=== PATIENT | male | born 1970 | race Asian ===

== ENCOUNTER 2020-12-04 10:57 | Emergency (ER) | payer MEDICAID ==
[~2020-12-04] VITALS: Ht 157.5 cm; Wt 47.7 kg
[2020-12-04 10:58] VITALS: BP 142/94
--- NOTE | 2020-12-04 11:34 | NUR ---
PT BIB SISTER VIA POV. PER PT'S SISTER "AT HOME HE WILL NOT EAT OR TAKE HIS MEDICATION, HE KEEPS REPEATING NONSENCE". PT NOT ANSWERING MOST QUESTIONS, PT WITH HX SCHIZ. SISTER DENIES SI/HI. PT CURRENTLY WILL SAY "NO" TO SI/HI QUESTONS. PT RESTING IN [place], SISTER AT BEDSIDE, AWAITING EDMD TAM ALVAREZ.
[2020-12-04 12:19] LABS: BASOPHILS % (AUTO) 0 % (0-1); EOSINOPHILS % (AUTO) 0 % (1-7); LYMPHOCYTES % (AUTO) 11 % (22-44); MEAN CORPUSCULAR HEMOGLOBIN 27.8 pg (27.5-34.5); MEAN CORPUSCULAR HGB CONC 33.7 g/dL (33.2-36.2); MEAN PLATELET VOLUME 7.3 fL (7.4-10.4); MONOCYTES % (AUTO) 7 % (2-9); NEUTROPHILS % (AUTO) 82 % (42-75); PLATELET COUNT 230 x10^3/uL (130-400); RED BLOOD COUNT 4.93 x10^6/uL (4.38-5.82); RED CELL DISTRIBUTION WIDTH 13.5 % (9.4-14.8)
[2020-12-04 12:21] LABS: ALANINE AMINOTRANSFERASE 21 U/L (12-78); ALBUMIN 3.7 g/dL (3.4-5.0); ANION GAP 5 mmol/L (5-15); CALCIUM 8.1 mg/dL (8.5-10.1); CHLORIDE 106 mmol/L (98-107); CREATININE 0.94 mg/dL (0.7-1.3)
[2020-12-04 12:23] LABS: ALKALINE PHOSPHATASE 78 U/L (45-117); BILIRUBIN,TOTAL 0.9 mg/dL (0.2-1.0); TOTAL PROTEIN 6.8 g/dL (6.4-8.2)
[2020-12-04 12:25] LABS: SALICYLATE LEVEL < 1.7 mg/dL (2.8-20.0)
--- NOTE | 2020-12-04 12:38 | NUR ---
REPORT TO DA ALICEA. PT MOVED TO ROOM 3.
--- NOTE | 2020-12-04 12:46 | NUR ---
THROUGHPUT RN: [facility] CALLED, PER ALEJANDRA DUARTE REFERRING PT TO [facility] AND UNABLE TO ACCEPT PT AT THIS TIME.
--- NOTE | 2020-12-04 12:50 | NUR ---
PT MOVED TO ROOM 3. PT RESTING CALMLY IN BED. PT SISTER AT BEDSIDE. ROOM SECURED FOR PSYCH PT
[2020-12-04] MEDS ORDERED: OLANZAPINE ODT 10MG PO ONE (13:00)
[2020-12-04] MEDS ORDERED: OLANZAPINE ODT 10MG ONE (13:22)
--- NOTE | 2020-12-04 13:32 | NUR ---
SISTER JULIUS WOULD LIKE UPDATES [phone] Addendum: 12/04/20 at 1654 by AMCSHANDRA PT SISTER DID TAKE ALL PT BELONGINGS HOME
--- NOTE | 2020-12-04 14:34 | NUR ---
THROUGHPUT RN: PACKET FAXED TO [facility]. [facility] DID NOT ACCEPT AT THIS TIME
--- NOTE | 2020-12-04 15:16 | NUR ---
THROUGHPUT RN: [facility] CALLED, PER DJ DENIED PT AT THIS TIME "THEY ARE FEE FOR SERVICE PATIENT, MEDICAID SO WE DO NOT TAKE THEM."
--- NOTE | 2020-12-04 15:18 | NUR ---
THROUGHPUT RN: JAYCOB FROM [facility] CALLED, DR. KENNEDY ACCEPTING PT. PRIMARY RN FELA BAUTISTA. FELA ROBERSON AND JAYCOB RN GIVING NURSE TO NURSE REPORT. DR. SANCHEZ UPDATED ON POC, CONSENT FOR TRANSFER SIGNED BY DR. SANCHEZ. [facility]RANGMENTS IN PROGRESS WITH [facility] FOR TRANSPORT.
--- NOTE | 2020-12-04 15:33 | NUR ---
REPORT GIVEN TO RECIEVING RN AT [facility]
--- NOTE | 2020-12-04 16:47 | NUR ---
PT DECLINED MEAL TRAY AT THIS TIME, STILL UNABLE TO VOID FOR UDS. DENIES NEEDS. SITTER IN PLACE
--- NOTE | 2020-12-04 16:50 | NUR ---
THROUGHPUT RN: BREAK DA GRIDER FACILITATED PT TRANSFER PAPERWORK AND TRANSPORT VIA AMBULANCE TO [facility]. SPOKE TO KATHIA AT [facility] DISPATCH, AMBULANCE ETA 1730 FOR TRANSPORT TO [facility]. OUTSOLE ROUNDER AND PRIMARY RN FELA UPDATED ON POC.
--- NOTE | 2020-12-04 17:24 | NUR ---
THROUGHPUT RN: [facility] CALLED ER TO INFORM TRANSPORT DELAYED, WILL CALL WITH NEW ETA.
--- NOTE | 2020-12-04 19:15 | NUR ---
FIRST ENCOUNTER WITH PATIENT. PATIENT REQUESTING TO LEAVE. UPDATED PATIENT THAT WE ARE WAITING ON [facility] TO TRANSPORT HIM TO [facility]. PATIENT PROVIDED WITH ICE WATER AND IS NOW LYING IN STRETCHER. 1:[address] ROOM SECURE. SI PRECAUTIONS IN PLACE. WILL CONTINUE TO MONITOR.
[2020-12-04] MEDS ORDERED: OLANZAPINE 5 MG TABLET PO SCH (21:00)
== END 2020-12-04 20:39 ==
LOC: ED 12:35
DX: F23 Brief psychotic disorder (principal); F17.200 Nicotine dependence, unspecified, uncomplicated; Z91.14 Patient's other noncompliance with medication regimen
CPT/HCPCS: 36415; 80053; 80299; 80320; 80329; 85025; 99283; 99285; G0480